=== PATIENT | male | born 1970 | race Caucasian/White ===

== ENCOUNTER 2023-11-16 12:13 | Outpatient (CLI) | payer OTHER, SELFPAY ==
[2023-11-16 13:39] LABS: Prostate Specific Antigen 0.5 ng/mL (< OR = 4.0)
[2023-11-18 07:35] LABS: Prolactin 6.8 ng/mL (2.0-18.0)
== END 2023-11-16 12:14 | disposition home or self-care (01) ==
DX: E29.1 Testicular hypofunction (principal)
CPT/HCPCS: 36415; 84146; 84153

== ENCOUNTER 2023-12-15 11:05 | Outpatient (CLI) | payer OTHER, SELFPAY ==
--- NOTE | ~2023-12-15 | MR_ITS ---
EXAMINATION: MR pituitary wo/w con DATE: 12/15/2023 12:01 INDICATION: Male hypogonadism. TECHNIQUE: Magnetic resonance imaging (MRI) of the brain and brainstem was performed without and with 20 mL MultiHance intravenous contrast. COMPARISON: None. FINDINGS: The pituitary is normal in size with height of 5 mm and concave superior margin. There is n o intracranial hemorrhage, acute infarction, or abnormal intracranial mass lesion. The ventricles are normal in size. There are bilateral mastoid effusions. There is mild mucosal thickening in the ethmo id sinuses. There are likely changes of left ocular lens replacement surgery. IMPRESSION: 1. Normal brain. Normal pituitary. Reviewed, dictated and finalized at location B.
== END 2023-12-15 11:06 | disposition home or self-care (01) ==
DX: E29.1 Testicular hypofunction (principal)
CPT/HCPCS: 70553; A9577